=== PATIENT | male | born 1975 | race Caucasian/White ===

== ENCOUNTER → 2018-01-06 | Outpatient (CLI) | payer BC, OTHER ==
[~2018-01-06] MED LIST: PRED20 PO; RXERYTOPTH OP; RXOXYACE PO
== END | disposition home or self-care (01) ==
LOC: PLD 11:28 → LAB SHORT 11:28
DX: D23.62 Other benign neoplasm of skin of left upper limb, including shoulder (principal)
CPT/HCPCS: 88305